=== PATIENT | female | born 1980 | race Caucasian/White ===

== ENCOUNTER → 2017-10-04 | Outpatient (CLI) | payer OTHER ==
[2017-10-04 15:35] VITALS: BP 118/78; PULSE 72; BMI 23.6
--- NOTE | 2017-10-05 08:20 | MM ---
Reason for exam: clinical finding. Baseline mammogram. History: Retro-pectoral saline implants in both breasts, 2006. Indicated problem(s): lump or thickening in the right breast. Physical Findings: Nurse Summary: tender nodule right axilla, questionable lymph node, 1cm adenopathy right axilla (nurse mj). MG 3D Diag Mammo Imp W/Cad PATRIA Bilateral CC, MLO, and ID view(s) were taken. The breast tissue is heterogeneously dense. This may lower the sensitivity of mammography. Punctate calcifications seen. There is chronic nodularity bilaterally. Bilateral implants are intact. These results were verbally communicated with the patient and result sheet given to the patient on 10/04/17. ASSESSMENT: Incomplete: need additional imaging evaluation, BI-RAD 0 RECOMMENDATION: Ultrasound of both breasts.
--- NOTE | 2017-10-05 08:25 | USB ---
Reason for exam: additional evaluation requested from abnormal screening. History: Retro-pectoral saline implants in both breasts, 2006. US Breast BILAT Right complete breast ultrasound includes all four quadrants, the retroareolar region and axilla. Finding demonstrates a 0.4 x 0.4 x 0.2cm oval, cystic lesion at 2 o'clock and a 0.9 x 1.0 x 0.5cm oval, mixed lesion at 9 o'clock for which a biopsy is recommended. Left complete breast ultrasound includes all four quadrants, the retroareolar region and axilla. Finding demonstrates a 0.5 x 0.6 x 0.2cm oval, cystic lesion at 12 o'clock and a 0.6 x 0.2 x 0.4cm oval, mixed lesion at 11 o'clock. These results were verbally communicated with the patient and result sheet given to the patient on 10/04/17. ASSESSMENT: Suspicious, BI-RAD 4 RECOMMENDATION: Ultrasound core biopsy of the right breast. Manage patient on a clinical basis. Called Dr. Perkins with mammographic findings and has scheduled an appointment for the patient for 10/04/[address] Kay. PRELIMINARY REPORT CALLED AND FAXED TO DR. KAY ON 10/04/17.
== END | disposition home or self-care (01) ==
LOC: RADMAMWWP 14:04
PROVIDERS: ATTEND Internal Medicine
DX: N63.10 Unspecified lump in the right breast, unspecified quadrant (principal); N63.20 Unspecified lump in the left breast, unspecified quadrant
CPT/HCPCS: 77066; 76641; G0279; 77062

== ENCOUNTER → 2017-10-04 | Outpatient (CLI) | payer OTHER | DX: Z53.9 Procedure and treatment not carried out, unspecified reason (principal) ==

== ENCOUNTER → 2018-02-14 | Outpatient (CLI) | payer OTHER ==
[2018-02-14 16:01] VITALS: BP 140/67; PULSE 70; RESP 18; TEMP 98.4; BMI 25.7
--- NOTE | 2018-02-14 16:15 | P.GSHP ---
History of Present Illness H&P Date: 02/14/18 Chief Complaint: Ultrasound abnormality of the right breast The patient is a 37-year-old white female who was initially seen on [id number]. At that time she had undergone bilateral mammogram and ultrasound. There was noted to be an area of some concern in the 9:00 area of the right breast which was reviewed directly with the radiologist and felt to have a low index of suspicion. Of concern was the fact that the patient had bilateral breast implants and after discussion with the patient she opted to have this followed radiographically with a repeat ultrasound performed at 3 months. It was noted than she would call us sooner if she noted anything of concern. The patient states that she does not note anything different in [place] [id number] revealed in the 2 o'clock position of the right breast circumscribed oval mass measuring 0.7 x 0.5 cm in size. At the 10 o'clock position there was a circumscribed oval mass measuring 0.2 x 1 cm. It presented with a border and hypoechoic pattern with no posterior acoustic features. At the 11 o'clock position there was a circumscribed oval mass measuring 0.4 cm x 0.2 cm . The lesion at 2:00 was felt to have increased in size and biopsy was recommended Additionally at this time there is a lesion at 10:00 which appears to be solid and biopsy is recommended. The bilateral implants replaced in 2006. She believes that they're subpectoral. Family History: 1. mother: kidney cancer 2. maternal aunt: kidney cancer 3. maternal grandmother: bone Hormonal history: menarche: 10 : 3, 3 children, breast fed: none first born at 12 periods regular BCP 2 years past surgical history: 1. Bilateral breast implants 2006 2. Tubal ligation 3. 2 surgeries on left knee Past medical history: Negative Review of systems: HEENT: Negative Lungs: Negative Heart: Negative GI: Negative Musculoskeletal: Arthritis in the Also history: Smoking: Negative Alcohol: Negative Drugs: Negative - Constitutional Constitutional: Reports sweats, Denies chills, Denies fever - EENT Eyes: denies blurred vision, denies pain Ears: deny: decreased hearing, tinnitus Ears, nose, mouth and throat: Denies headache, Denies sore throat - Breasts Breasts: bilateral: as per HPI - Cardiovascular Cardiovascular: Denies chest pain, Denies shortness of breath - Respiratory Respiratory: Denies cough, Denies 7 - Gastrointestinal Gastrointestinal: Denies abdominal pain, Denies diarrhea, Denies nausea, Denies vomiting - Genitourinary (Female) Genitourinary: Denies dysuria, Denies hematuria - Menstruation Menstruation: Reports period normal - Musculoskeletal Comment: arthritis left knee - Integumentary Integumentary: Denies pruritus, Denies rash - Neurological Neurological: Denies numbness, Denies weakness - Psychiatric Psychiatric: Denies anxiety, Denies depression - Endocrine Endocrine: Denies fatigue, Denies weight change - Hematologic/Lymphatic Comment: none - Allergic/Immunologic Allergic/Immunologic: Reports seasonal allergies Past Medical History Past Medical History: No Reported History History of Any Multi-Drug Resistant Organisms: None Reported Past Surgical History: Orthopedic Surgery Past Psychological History: No Psychological Hx Reported Smoking Status: Never smoker Past Alcohol Use History: None Reported Past Drug Use History: None Reported Medications and Allergies Home Medications Medication Instructions Recorded Confirmed Type No Known Home Medications 02/14/18 02/14/18 History Allergies Allergy/AdvReac Type Severity Reaction Status Date / Time No Known Allergies Allergy Verified 02/14/15 07:32 Surgical - Exam HR: 70 BP: 140/67 R:18 O2 :98% temp: 98.4 BMI: 25.7 - General well developed, well nourished, no distress - Eyes normal ocular movement - ENT no hearing loss, no congestion - Neck no masses, trachea midline - Respiratory normal respiratory effort, clear to auscultation - Cardiovascular Rhythm: regular Heart Sounds: normal: S1, S2 - Abdomen Abdomen: soft, non tender, no guarding, no rigid, no rebound - Integumentary normal turger Multiple tattoos - Musculoskeletal normal gait, normal posture - Psychiatric oriented to time, oriented to person, oriented to place, speech is normal, memory intact Breast examination: Right breast: Multi-positional exam no dominant masses or nodules of concern, particularly attention was paid to the 2 and 10 o'clock position with no dominant masses Right axilla: No adenopathy of concern Left breast: Multi-positional exam no dominant masses or nodules of concern Left axilla: No adenopathy of concern Note: Patient has bilateral breast implants which were placed from the infraumbilical region. Results Right breast ultrasound reviewed Assessment and Plan Assessment: Impression: 1. Ultrasound abnormality right breast 2. Bilateral breast implants 3. Arthritis in the knee Plan: 1. At this time secondary to the increase in size at the area 2:00 in the right breast is been recommended she undergo ultrasound core biopsy and additionally a core biopsy of 10:00 right breast mass which was has not changed in size CC: Dr. Harrison
== END ==
LOC: WWCWWP 15:24
PROVIDERS: ATTEND Surgery
DX: Z53.9 Procedure and treatment not carried out, unspecified reason (principal)

== ENCOUNTER → 2018-03-01 | Day surgery (SDC) | payer OTHER ==
[2018-03-01 11:00] VITALS: PULSE 80; RESP 16; TEMP 98.5; BMI 25.7
[2018-03-01 12:30] VITALS: BP 119/77
--- NOTE | 2018-03-01 15:11 | USB ---
EXAMINATION TYPE: US breast aspiration single RT DATE OF EXAM: 03/01/2018 CLINICAL HISTORY: R92.8 PREV ABN MAMMO.. TECHNIQUE: Ultrasound guided core biopsy of right breast. COMPARISON: NONE FINDINGS: The procedure of ultrasound guided core biopsy and cyst aspiration was explained to the patient. Benefits, alternatives, and risks were discussed. Specific discussion regarding implant rupture was discussed. An informed consent was then obtained. Timeout was performed. The patient was placed in lateral oblique positioning for imaging and for the procedure. The overlying skin was prepped and draped in usual sterile fashion. Lidocaine buffered with bicarbonate was used as anesthetic into the skin and subcutaneous tissue up to area of concern in the right breast. Under ultrasound guidance, an 18-gauge spinal needle was advanced into the lesion. Dark fluid was easily aspirated with complete collapse of the structure. Clip was placed at the site. The sample was transferred to pathology for additional evaluation. The biopsy was not performed. The patient tolerated the procedure well without any immediate complication. The patient was kept in the radiology department for short stay after the procedure and then discharged home in stable condition. Procedure mammogram was performed. A ribbon clip is identified within the breast upper outer quadrant. IMPRESSION: 1. Successful ultrasound-guided cyst aspiration 11:00 position right breast. 2. Successful clip placement. Recommendations: 1. Recommendations are pending pathology results. Pathology Results: Benign RIGHT BREAST, ASPIRATE: Degenerated cellular material consistent with cyst contents. Recommendation Follow up ultrasound of the right breast in 6 months. CARMELA
--- NOTE | 2018-03-01 15:56 | MM ---
EXAMINATION TYPE: MG diagnostic mammo RT wo CAD DATE OF EXAM: 03/01/2018 COMPARISON: NONE CLINICAL HISTORY: Ultrasound cyst aspiration TECHNIQUE: 2 views of the right breast post clip placement. FINDINGS: Ribbon Clip is within the expected region of the biopsy. IMPRESSION: 1. Successful ribbon clip placement postbiopsy. Recommendations: 1. Recommendations are pending pathology results.
== END | disposition home or self-care (01) ==
LOC: RADUSWWP 10:20
PROVIDERS: ATTEND Surgery
DX: N60.02 Solitary cyst of left breast (principal)
CPT/HCPCS: 88108; 77065; 76942; 19000; A4648; J2001

== ENCOUNTER → 2018-03-15 | Outpatient (CLI) | payer OTHER ==
[2018-03-15 16:06] VITALS: BP 122/59; PULSE 68; RESP 18; TEMP 98.3; BMI 24.9
--- NOTE | 2018-03-15 16:34 | P.PN ---
Subjective Progress Note Date: 03/15/18 Principal diagnosis: Abnormal ultrasound right breast Elise is a 37-year-old white female who on a ultrasound of the right breast was noted to have 2 areas of concern. One at the 2 o'clock position and one at the 10 o'clock position. It was recommended that she undergo ultrasound aspiration/ biopsy of these areas. The patient on 03-01-18 underwent aspiration of a lesion in the right breast and this was a cyst pathology revealed degenerating cellular material consistent with cyst contents. The second area was not sampled or aspirated. The lesion that was sampled was at the 11 o'clock position. The patient has no complaints related to the procedure. Objective - Vital Signs Vital signs: Vital Signs Temp 98.3 F 03/15/18 15:50 Pulse 68 03/15/18 15:50 Resp 18 03/15/18 15:50 BP 122/59 03/15/18 15:50 Pulse Ox 100 03/15/18 15:50 Intake & Output 03/14/18 03/15/18 03/15/18 18:59 06:59 18:59 Weight 65.771 kg - Constitutional General appearance: Present: average body habitus - EENT Eyes: Present: EOMI ENT: Present: hearing grossly normal - Neck Neck: Present: normal ROM - Respiratory Respiratory: bilateral: CTA - Cardiovascular Rhythm: regular Heart sounds: normal: S1, S2 - Gastrointestinal General gastrointestinal: Present: soft - Musculoskeletal Musculoskeletal: Present: gait normal - Psychiatric Psychiatric: Present: A&O x's 3, appropriate affect, intact judgment & insight - Additional findings Additional findings: Right breast area of ultrasound aspiration no evidence of hematoma or infection Assessment and Plan Assessment: Impression: 1. Right breast aspiration at 11:00 degenerative cellular material consistent with cyst contents 2. Secondary at 2:00 uncertain as to why it was not sampled will discuss with radiology Plan: 1. Discussed with radiology 2:00 area of the right breast if further intervention is necessary 2. Repeat right breast mammogram/ultrasound in 6 months with physician exam at that time Cc: Dr. Granados
== END ==
LOC: WWCWWP 15:44
PROVIDERS: ATTEND Surgery
DX: Z53.9 Procedure and treatment not carried out, unspecified reason (principal)

== ENCOUNTER → 2018-04-03 | Day surgery (SDC) | payer OTHER ==
[2018-04-03 12:09] VITALS: BMI 26.4
[2018-04-03 12:17] VITALS: RESP 16
--- NOTE | 2018-04-03 13:31 | USB ---
EXAMINATION TYPE: US biopsy breast VAD RT, MG diagnostic mammo RT wo CAD DATE OF EXAM: 04/03/2018 CLINICAL HISTORY: R92.8 Abnormal mammogram. Abnormal ultrasound. Ordering surgeon requests sampling of second identified lesion under ultrasound. TECHNIQUE: Ultrasound guided fine-needle aspiration and/or core biopsy of right breast with clip placement and follow-up two-view mammogram. COMPARISON: Prior ultrasound January 14, 2018 FINDINGS: The procedure of ultrasound guided fine-needle aspiration and/or core biopsy was explained to the patient. Benefits, alternatives, and risks were discussed including risks of possible implant rupture. An informed consent was then obtained. The patient was placed in supine positioning for imaging and for the procedure. Preprocedure ultrasound redemonstrates vague subcentimeter heterogeneous hypoechoic lesion 2:00 position in the right breast in the deep tissues near implant margin. The overlying skin was prepped and draped in usual sterile fashion. Lidocaine buffered with bicarbonate was used as anesthetic into the skin and subcutaneous tissue up to area of concern in the right breast. Aspiration was attempted utilizing 18-gauge spinal needle under ultrasound guidance. Attempts were unsuccessful. Under ultrasound guidance, a 12-gauge vacuum assisted biopsy gun device was used to obtain 2 core samples. Following this, a biopsy clip was left in lesion. The patient tolerated the procedure well without any immediate complication. The patient was kept in the radiology department for short stay after the procedure and then discharged home in stable condition. Postprocedure mammogram shows successful deployment of new second clip. IMPRESSION: Successful, uncomplicated ultrasound guided core biopsy of area of concern in the right breast, full pathology results to follow. Low index of suspicion noted at time of procedure. Procedure performed as per surgeon request. Pathology Results: Benign RIGHT BREAST, TWO O'CLOCK, ULTRASOUND GUIDED CORE BIOPSY: Fibrocystic changes including cysts and fibrosis. Recommendation Follow up ultrasound of the right breast in 6 months. CARMELA
[2018-04-03 13:33] VITALS: BP 114/77; PULSE 73; TEMP 98
--- NOTE | 2018-04-04 12:06 | USB ---
Reason for exam: additional evaluation requested from prior study. History: Benign US breast aspiration single RT of the right breast, March 01, 2018. Retro-pectoral saline implants in both breasts, 2006. Physical Findings: Nurse Summary: Patient complains of intermittent right breast soreness (nurse mj). US Breast Limited RT Right limited breast ultrasound including focal area of concern, retroareolar and axilla demonstrates a 8 x 4 x 8mm oval, hypoechoic lesion at 2 o'clock, a 5 x 3 x 4mm oval, cystic lesion at 3 o'clock and debris filled ducts at the posterior nipple. Probable debris filled cysts. These results were verbally communicated with the patient and result sheet given to the patient on 04/03/18. ASSESSMENT: Probably benign, BI-RAD 3 RECOMMENDATION: Ultrasound of the right breast in 6 months.
== END ==
LOC: RADUSWWP 11:29
PROVIDERS: ATTEND Surgery
DX: N60.31 Fibrosclerosis of right breast (principal); R92.8 Other abnormal and inconclusive findings on diagnostic imaging of breast
CPT/HCPCS: 88305; 77065; 19083; 76642; A4648; J2001

== ENCOUNTER → 2018-04-12 | Outpatient (CLI) | payer OTHER ==
[2018-04-12 16:13] VITALS: BP 141/75; PULSE 80; RESP 18; TEMP 98; BMI 26.4
--- NOTE | 2018-04-12 16:39 | P.PN ---
Subjective Progress Note Date: 04/12/18 Principal diagnosis: Status post ultrasound core biopsy of the right breast. The patient states approximately 2 days after the procedure of follicle Quan on the lateral aspect of the right breast although the core biopsy was taken from the medial aspect of the right breast. She then developed a blister which popped. The biopsy was done on [id number]. Pathology is fibrocystic changes including cyst and fibrosis. The patient developed erythema of the lateral aspect of the right breast which is approximately 5.5 cm x 4 cm in size. The breast is tender. The patient has not had any fever or chills or night sweats. Objective - Vital Signs Vital signs: Vital Signs Temp 98 F 04/12/18 16:03 Pulse 80 04/12/18 16:03 Resp 18 04/12/18 16:03 BP 141/75 04/12/18 16:03 Pulse Ox 99 04/12/18 16:03 Intake & Output 04/11/18 04/12/18 04/12/18 18:59 06:59 18:59 Weight 67.585 kg - Exam BMI 26.4 - Constitutional General appearance: Present: average body habitus, cooperative - EENT ENT: Present: hearing grossly normal - Neck Neck: Present: normal ROM - Respiratory Respiratory: bilateral: CTA - Cardiovascular Rhythm: regular Heart sounds: normal: S1, S2 - Gastrointestinal General gastrointestinal: Present: soft - Integumentary Integumentary Comment(s): Right breast ultrasound core biopsy puncture site in the medial aspect of the breast reveals some ecchymosis but otherwise no evidence of infection and lateral aspect of the breast there is an irregular area of erythema with a recently ruptured blister in the center of it the areas approximately 5.5 cm x 4 cm. Attempt to obtain cultures was unsuccessful as there is no fluid emanating from the area Assessment and Plan Assessment: Impression: 1. 37-year-old white female status post ultrasound biopsy of 2 areas of concern in the right breast both are benign 2. Post ultrasound core biopsy of the right breast from the medial aspect patient developed blistering and erythema of the lateral aspect of the right breast 3. Patient has bilateral breast implants 4. uncertain as to whether the area of erythema represents an infectious etiology versus avascular reaction 5. Patient with no tachycardia no fever no evidence of any infectious sepsis Plan: 1. Patient will be started on Keflex/unable to obtain cultures is nothing draining 2. Will obtain infectious disease consult 3. Patient to follow here next week 4. If the area of erythema increases in size patient instructed to be seen in the emergency room/the area has been circumscribed with a skin marking pen line 5. After consent a photograph of the area of concern has been obtained CC: Dr. Granados
== END ==
LOC: WWCWWP 15:42
PROVIDERS: ATTEND Surgery
DX: Z53.9 Procedure and treatment not carried out, unspecified reason (principal)

== ENCOUNTER → 2018-04-18 | Outpatient (CLI) | payer OTHER ==
[2018-04-18 16:57] VITALS: BP 121/80; PULSE 71; RESP 18; TEMP 98.3; BMI 26.4
--- NOTE | 2018-04-18 16:57 | P.PN ---
Progress Note - Text Progress Note Date: 04/18/18 The patient returns for repeat evaluation of the right breast. Post ultrasound core biopsy she had developed an area of marked erythema in the breast with some sloughing of the skin in the lateral aspect of the breast. She was started on a dose of antibiotics and comes for follow-up. At this time the area is less tender. She has decreased erythema. She appears to be doing very well. Examination: Decreased erythema at the area of the lateral aspect of the right breast Impression: 1. Decreased inflammatory/reaction near lateral aspect of the right breast Plan: 1. Patient has completed her course of antibiotics will continue to follow conservatively 2. Follow-up one week
== END | disposition home or self-care (01) ==
LOC: WWCWWP 15:53
PROVIDERS: ATTEND Surgery
DX: Z53.9 Procedure and treatment not carried out, unspecified reason (principal)

== ENCOUNTER → 2018-04-25 | Outpatient (CLI) | payer OTHER ==
[2018-04-25 16:26] VITALS: BP 130/62; PULSE 80; RESP 16; TEMP 97.5; BMI 26.4
--- NOTE | 2018-04-25 16:47 | P.PN ---
Progress Note - Text Progress Note Date: 04/25/18 The patient returns for repeat evaluation of the right breast. Post ultrasound core biopsy she had developed an area of marked erythema in the breast with some sloughing of the skin in the lateral aspect of the breast. She was started on a dose of antibiotics and comes for follow-up. At this time the area is less tender. She has decreased erythema. She appears to be doing very well. Examination: resolved erythema at the area of the lateral aspect of the right breast Impression: 1. resolved inflammatory/reaction in the lateral aspect of the right breast Plan: 1. Follow-up right breast mammogram in 6 months time with examination at that time CC: Hunter
== END | disposition home or self-care (01) ==
LOC: WWCWWP 16:05
PROVIDERS: ATTEND Surgery
DX: Z53.9 Procedure and treatment not carried out, unspecified reason (principal)

== ENCOUNTER → 2018-09-09 | Outpatient (CLI) | payer OTHER ==
--- NOTE | 2018-09-10 11:18 | USB ---
Reason for exam: clinical finding. History: Benign US biopsy breast VAD RT of the right breast, April 03, 2018. Benign US breast aspiration single RT of the right breast, March 01, 2018. Retro-pectoral saline implants in both breasts, 2006. Indicated problem(s): lump or thickening in the right breast. Physical Findings: Nurse did not find any significant physical abnormalities on exam. US Breast RT Right complete breast ultrasound includes all four quadrants, the retroareolar region and axilla. Finding demonstrates a 0.7 x 0.3 x 0.6cm oval, cystic lesion at 2 o'clock previously 0.8 x 0.4 x 0.8cm, a 0.7 x 0.3 x 0.5cm oval, solid lesion at 10 o'clock previously 0.7 x 0.5 x 0.3cm, a 0.5 x 0.5 x 0.4cm oval, cystic lesion at 11 o'clock and dilated duct with debris versus prominent breast lobe at 4 o'clock. These results were verbally communicated with the patient and result sheet given to the patient on 09/09/18. ASSESSMENT: Probably benign, BI-RAD 3 RECOMMENDATION: Follow-up diagnostic mammogram of both breasts in 1 month. (due after 10/04/18 for mammogram) Ultrasound of the right breast in 6 months.
== END | disposition home or self-care (01) ==
LOC: RADUSWWP 10:10
PROVIDERS: ATTEND Surgery
DX: N63.10 Unspecified lump in the right breast, unspecified quadrant (principal); R92.8 Other abnormal and inconclusive findings on diagnostic imaging of breast

== ENCOUNTER → 2018-09-12 | Outpatient (CLI) | payer OTHER ==
[2018-09-12 13:55] VITALS: BP 120/79; PULSE 79; RESP 16; TEMP 98.1; BMI 25.7
--- NOTE | 2018-09-12 14:22 | P.PN ---
Subjective Progress Note Date: 09/12/18 The patient is a 37-year-old white female who is status post ultrasound-guided core biopsy of the right breast on [id number]. Pathology revealed fibrocystic changes including cyst and fibrosis. She had a repeat ultrasound performed on 6318. The ultrasound revealed a 0.7 cm cystic lesion at 2:00, 0.8 cm solid lesion at 10:00, and a 0.5 cm cystic lesion at 11:00. These were felt to be probably benign and recommendation was for the patient to undergo bilateral diagnostic mammograms in 1 month. Additionally a repeat right breast ultrasound in 6 months was recommended. The patient does not feel anything that she is concerned about in her breast. It is important to note that she has bilateral subpectoral implants. Family history: 1. Mother: Kidney cancer 2. Maternal aunt: Kidney cancer 3. Maternal grandmother: Bone cancer Home medical history: Menarche: 10 Mrs.: 3, 3 children, breast fed: Negative First child was born 12 Periods: Regular control pills: 2 years Hormones: Negative Past surgical history 1. Bilateral breast implants 2. Tubal ligation 2. 2 surgeries on her left knee Past medical history: Negative Review of systems: HEENT: Negative Lungs: Negative Heart: Negative GI: Negative Musculoskeletal: Arthritis in the Social history: Smoking: Negative Alcohol: Negative Drugs: Negative Objective - Vital Signs Vital signs: Vital Signs Temp 98.1 F 09/12/18 13:52 Pulse 79 09/12/18 13:52 Resp 16 09/12/18 13:52 BP 120/79 09/12/18 13:52 Pulse Ox 100 09/12/18 13:52 Intake & Output 09/11/18 09/12/18 09/12/18 18:59 06:59 18:59 Weight 68.039 kg - Exam BMI 25.7 - Constitutional General appearance: Present: average body habitus - EENT Eyes: Present: EOMI ENT: Present: hearing grossly normal - Neck Neck: Present: normal ROM - Respiratory Respiratory: bilateral: CTA - Cardiovascular Rhythm: regular Heart sounds: normal: S1, S2 - Gastrointestinal General gastrointestinal: Present: soft - Integumentary Integumentary: Present: normal turgor - Musculoskeletal Musculoskeletal: Present: gait normal - Psychiatric Psychiatric: Present: A&O x's 3, appropriate affect, intact judgment & insight - Allied health notes Allied Health Notes Comment(s): Breast examination: Right breast: Multi-positional exam no dominant mass or nodule is of concern, implant in place Right axilla: No adenopathy of concern Left breast: Multiple positional exam no dominant masses or nodules of concern, implant in place, fibrocystic changes Left axilla: No adenopathy of concern Implants were placed via an infraumbilical incision Assessment and Plan Assessment: Impression: 1. Radiographic abnormality noted right breast 2. Fibrocystic breast changes 3. Bilateral breast implants 4. Family history of cancer Plan: 1. bilateral mammogram in one month, if this is benign then we'll see patient in 6 months with repeat right breast ultrasound 2. Medical management of medical conditions CC: Dr. Granados
== END ==
LOC: WWCWWP 13:27
PROVIDERS: ATTEND Surgery
DX: Z53.9 Procedure and treatment not carried out, unspecified reason (principal)

== ENCOUNTER → 2018-10-07 | Outpatient (CLI) | payer OTHER ==
--- NOTE | 2018-10-07 11:44 | MM ---
Reason for exam: additional evaluation requested from prior study. Last mammogram was performed 6 months ago. History: Benign US biopsy breast VAD RT of the right breast, April 03, 2018. Benign US breast aspiration single RT of the right breast, March 01, 2018. Retro-pectoral saline implants in both breasts, 2006. Physical Findings: Nurse did not find any significant physical abnormalities on exam. MG Diag Mamm Implants PATRIA w CAD Bilateral CC, MLO, and ID view(s) were taken. Prior study comparison: April 03, 2018, right breast MG diagnostic mammo RT wo CAD. March 01, 2018, right breast MG diagnostic mammo RT wo CAD. The breast tissue is heterogeneously dense. This may lower the sensitivity of mammography. Benign appearing bilateral calcifications. No suspicious abnormality. Bilateral retropectoral saline implants. These results were verbally communicated with the patient and result sheet given to the patient on 10/07/18. ASSESSMENT: Benign, BI-RAD 2 RECOMMENDATION: Routine screening mammogram of both breasts in 1 year.
== END | disposition home or self-care (01) ==
LOC: RADMAMWWP 10:48
PROVIDERS: ATTEND Surgery
DX: R92.8 Other abnormal and inconclusive findings on diagnostic imaging of breast (principal)
CPT/HCPCS: 77066

== ENCOUNTER → 2018-10-09 | Outpatient (CLI) | payer OTHER ==
[2018-10-09 14:50] VITALS: BP 135/82; PULSE 82; RESP 16; TEMP 98; BMI 26.5
--- NOTE | 2018-10-09 15:14 | P.PN ---
Progress Note - Text Progress Note Date: 10/09/18 Marisa is a 37-year-old white female who presents today for results of her mammogram report. A bilateral mammogram was performed on 71. This was felt to be benign BIRADS 2 and recommendation was for a repeat bilateral mammogram of both breast in 1 year. She had previously undergone a right breast ultrasound on 6319. This revealed multiple cystic lesions and repeat right breast ultrasound was recommended in 6 months time. The patient does not feel anything of concern in her breast. It was not concerned about her breast at this time. She does have bilateral subpectoral implants. Lungs: clear heart: S1S2 Impression: 1. Bilateral mammogram 71 benign 2. Fibrocystic breast changes 3. Bilateral breast implants 4. Family history of cancer Plan: 1. Right breast ultrasound in 6 months with physician exam 2. Medical management of medical conditions CC: Dr. Granados
== END ==
LOC: WWCWWP 14:32
PROVIDERS: ATTEND Surgery
DX: Z53.9 Procedure and treatment not carried out, unspecified reason (principal)

== ENCOUNTER → 2019-03-17 | Outpatient (CLI) | payer OTHER ==
--- NOTE | 2019-03-17 11:48 | USB ---
Reason for exam: follow-up at short interval from prior study. History: Benign US biopsy breast VAD RT of the right breast, April 03, 2018. Benign US breast aspiration single RT of the right breast, March 01, 2018. Retro-pectoral saline implants in both breasts, 2006. Physical Findings: Nurse did not find any significant physical abnormalities on exam. US Breast RT Right complete breast ultrasound includes all four quadrants, the retroareolar region and axilla. Finding demonstrates a 10 x 5 x 10mm lobular, cystic, new lesion at 1 o'clock, a 7 x 4 x 8mm oval hypoechoic lesion at 2 o'clock unchanged from previous 04/03/18, a 6 x 3 x 7mm oval, solid, isoechoic lesion, complicated cyst at 1 o'clock unchanged from previous, a 4 x 3 x 5mm oval, cystic lesion at 11 o'clock unchanged from previous and debris filled ducts at the posterior nipple seen on previous and unchanged (no nipple discharge). These results were verbally communicated with the patient and result sheet given to the patient on 03/17/19. ASSESSMENT: Benign, BI-RAD 2 RECOMMENDATION: Routine screening mammogram of both breasts in 7 months. Back on schedule for October 2019. Manage on a clinical basis. Clinical surveillance for nipple discharge.
== END | disposition home or self-care (01) ==
LOC: RADUSWWP 10:15
PROVIDERS: ATTEND Surgery
DX: R92.8 Other abnormal and inconclusive findings on diagnostic imaging of breast (principal)

== ENCOUNTER → 2019-03-20 | Outpatient (CLI) | payer OTHER ==
[2019-03-20 09:57] VITALS: BP 124/81; PULSE 83; RESP 18; TEMP 97.6
--- NOTE | 2019-03-20 17:51 | P.PN ---
Subjective Progress Note Date: 03/20/19 Principal diagnosis: Marisa is a 37-year-old white female who is status post ultrasound-guided core biopsy of the right breast on [id number]. Pathology at that time revealed fibrocystic changes including cystic fibrosis. She had a repeat ultrasound performed on . Ultrasound revealed cystic changes as well as unchanged solid lesion at 1:00. She also had debris-filled ducts at the posterior nipple seen on previous ultrasound and unchanged. Patient does not complain of nipple discharge. This was felt to be benign BIRADS 2 and routine screening mammogram of both breasts in 7 months was recommended. The patient herself does not complain of any changes in her breast. She does not complain of any nipple discharge and she has no breast pain. Family history: 1. Mother: Kidney cancer 2. Maternal aunt: Kidney cancer 3. Maternal grandmother: Bone cancer History: Menarche: 10 , press-fit: Negative First child was born at 12 Past surgical history: Bilateral breast implants Tubal ligation 2 surgeries on her left knee Past medical history negative Social history: Smoking: Negative Alcohol: Negative Drugs: Negative review of systems: Constitutional: Negative HEENT: Negative Lungs: Negative Heart: Negative GI: Negative : Negative Objective - Vital Signs Vital signs: Vital Signs Temp 97.6 F 03/20/19 09:48 Pulse 83 03/20/19 09:48 Resp 18 03/20/19 09:48 BP 124/81 03/20/19 09:48 Pulse Ox 100 03/20/19 09:48 Intake & Output 03/19/19 03/20/19 03/20/19 18:59 06:59 18:59 Weight 72.575 kg - Exam BMI 27.5 - Constitutional General appearance: Present: average body habitus - EENT Eyes: Present: EOMI ENT: Present: hearing grossly normal - Neck Neck: Present: normal ROM - Respiratory Respiratory: bilateral: CTA - Cardiovascular Rhythm: regular Heart sounds: normal: S1, S2 - Gastrointestinal General gastrointestinal: Present: normal bowel sounds, soft - Integumentary Integumentary Comment(s): well-healed scar at umbilicus - Musculoskeletal Musculoskeletal: Present: gait normal, strength equal bilaterally - Psychiatric Psychiatric: Present: A&O x's 3, appropriate affect, intact judgment & insight - Additional findings Additional findings: breast examination: Right breast: Multiple positional exam no dominant masses or nodules of concern, implant in place Right axilla: No adenopathy of concern Left breast: Positional exam no dominant masses or nodules of concern, implant in place Left axilla: No adenopathy of concern Assessment and Plan Assessment: patient's ultrasound was reviewed Impression: Fibrocystic breast changes Plan: 1. Repeat bilateral mammogram that this ultrasound an appointment in October 08. Follow-up after mammogram and ultrasound Cc: Dr. Granados Encounter approximately 20 minutes greater than 50% of the time spent in counseling and planning Time with Patient: Less than 30
== END | disposition home or self-care (01) ==
LOC: WWCWWP 09:40
PROVIDERS: ATTEND Surgery
DX: Z53.9 Procedure and treatment not carried out, unspecified reason (principal)

== ENCOUNTER → 2019-04-28 | Outpatient (CLI) | payer OTHER ==
--- NOTE | 2019-04-28 09:14 | CT ---
EXAMINATION TYPE: CT sinus wo con DATE OF EXAM: 04/28/2019 COMPARISON: None HISTORY: Sinusitis CT DLP: 583.[address] of the paranasal sinuses was performed in the axial and coronal planes. Bone and soft tissue settings are submitted. The paranasal sinuses demonstrate normal aeration and development. The paranasal sinuses are free of mucosal thickening or air fluid level. The osteal meatal units are patent bilaterally. The nasal septum is deviated from right to left. No bony destructive changes are seen within the field of view. IMPRESSION: Nasal septal deviation. Otherwise unremarkable study.
== END | disposition home or self-care (01) ==
LOC: RADCTMAIN 08:31
PROVIDERS: ATTEND Otolaryngology
DX: J34.2 Deviated nasal septum (principal)
CPT/HCPCS: 70486

== ENCOUNTER → 2019-11-07 | Outpatient (CLI) | payer OTHER ==
--- NOTE | 2019-11-07 15:25 | XR ---
EXAMINATION TYPE: XR cervical spine comp DATE OF EXAM: 11/07/2019 TECHNIQUE: Frontal, lateral, oblique, and open mouth view of the cervical spine are obtained. HISTORY: Bilateral upper extremity and lower extremity radiculopathy. Tingling of hands and feet. COMPARISON: None FINDINGS: The cervical spine is visualized in its entirety from C1 thru the top of T1 level. No scol iosis. There is mild reversal of the normal cervical lordosis. No evidence of anterolisthesis. Normal alignment without evidence of acute fracture or dislocation. There is mild disc space narrowing at C 6-C7 with mild osteophytosis and uncovertebral hypertrophy. Neural foramina demonstrate mild degenera tive changes at the C6-C7 level with no significant bony encroachment. The pre-vertebral soft tissue appears within normal limits. The atlantoaxial relationship is within normal limits on the open mouth view. IMPRESSION: 1. No acute fracture or dislocation is seen in the cervical spine. 2. Mild degenerative changes at C6-C7 as above.
--- NOTE | 2019-11-07 15:28 | XR ---
EXAMINATION TYPE: XR lumbosacral spine min 4V DATE OF EXAM: 11/07/2019 CLINICAL HISTORY: Bilateral upper extremity and lower extremity radiculopathy. Tingling of hands and feet. TECHNIQUE: Frontal, lateral, and oblique images of the lumbar spine are obtained. COMPARISON: None FINDINGS: There are 5 lumbar type vertebral bodies identified. The lumbar spine shows mild left-melany ed curvature of the lumbar spine. No evidence of acute fracture or dislocation. Vertebral body height s and disk space heights are within normal limits. There is facet arthropathy worst at L5-S1. The obl ique images demonstrate no evidence of spondylolysis. No spondylolisthesis. Normal osseous mineraliza tion. IMPRESSION: 1. No acute fracture or dislocation is seen in the lumbar spine. 2. Facet arthropathy worst at L5-S1.
== END | disposition home or self-care (01) ==
LOC: RADXRMAIN 07:59
PROVIDERS: ATTEND Family Medicine
DX: M47.22 Other spondylosis with radiculopathy, cervical region (principal); M47.27 Other spondylosis with radiculopathy, lumbosacral region
CPT/HCPCS: 72050; 72110

== ENCOUNTER → 2020-07-28 | Outpatient (CLI) | payer OTHER ==
--- NOTE | 2020-07-28 10:21 | XR ---
EXAMINATION TYPE: XR chest 2V DATE OF EXAM: 07/28/2020 COMPARISON: Chest x-ray 02/14/2015 HISTORY: Family history of lung disease, C 83.6, abnormal chest x-ray TECHNIQUE: Frontal and lateral views of the chest are obtained. FINDINGS: There is a pectus deformity and spinal curvature is present on prior exam. No evident airs pace disease, pneumothorax, or pleural effusion. There are prominent lung volumes. Cardiac mediastina l silhouette is within normal limits. IMPRESSION: No acute cardiopulmonary process. Stable findings.
== END | disposition home or self-care (01) ==
LOC: RADXRMAIN 08:25
PROVIDERS: ATTEND Family Medicine
DX: R09.89 Other specified symptoms and signs involving the circulatory and respiratory systems (principal); Z83.6 Family history of other diseases of the respiratory system
CPT/HCPCS: 71046

== ENCOUNTER → 2021-03-07 | Outpatient (CLI) | payer OTHER ==
--- NOTE | 2021-03-07 12:47 | MR ---
EXAMINATION TYPE: MR lumbar spine wo con DATE OF EXAM: 03/07/2021 COMPARISON: None HISTORY: Low back pain TECHNIQUE: Multiplanar, multisequence images of the lumbar spine were acquired without IV contrast. L1-L2: There is mild decreased signal and loss of height compatible degenerative disc disease. Mild p osterior disc bulge. No herniation or protrusion seen. No evidence for central stenosis or neural for aminal encroachment. L2-L3: There is mild decreased signal and loss of height compatible degenerative disc disease. Mild p osterior disc bulge. No herniation or protrusion seen. No evidence for central stenosis or neural for aminal encroachment. L3-L4: There is mild decreased signal and loss of height compatible degenerative disc disease. Mild p osterior disc bulge. No herniation or protrusion seen. No evidence for central stenosis or neural for aminal encroachment. L4-L5: There is mild decreased signal and loss of height compatible degenerative disc disease. Mild p osterior disc bulge. No herniation or protrusion seen. No evidence for central stenosis or neural for aminal encroachment. L5-S1: There is mild decreased signal and loss of height compatible degenerative disc disease. Mild p osterior disc bulge. No herniation or protrusion seen. No evidence for central stenosis or neural for aminal encroachment. Lumbar segments are intact. No paraspinal masses are identified. Conus medullaris has a normal appe arance. IMPRESSION: Multilevel mild degenerative disc disease and disc bulging.
== END | disposition home or self-care (01) ==
LOC: RADMRIMAIN 11:06
PROVIDERS: ATTEND Orthopaedic Surgery
DX: M51.26 Other intervertebral disc displacement, lumbar region (principal); M51.36 Other intervertebral disc degeneration, lumbar region
CPT/HCPCS: 72148

== ENCOUNTER 2021-05-03 07:48 | Day surgery (SDC) | payer OTHER ==
[2021-04-27 12:08] VITALS: BMI 27.1
[~2021-05-03 07:48] MED LIST: LACTATED RINGERS 1,000 ML IV SCH
[2021-05-03 08:04] VITALS: RESP 18; TEMP 97.9
[2021-05-03] MEDS ORDERED: LACTATED RINGERS 1,000 ML IV ONE (08:06)
[2021-05-03] MEDS ORDERED: methylPREDNISolone ACETATE 40 MG/ML 1 ML VIAL ONE (08:10)
[2021-05-03] MEDS ORDERED: IOPAMIDOL M200 10 ML VIAL ONE (08:10)
[2021-05-03] MEDS ORDERED: fentaNYL (PF) 50 MCG/ML 2 ML AMP ONE (08:10)
[2021-05-03] MEDS ORDERED: MIDAZOLAM 2 MG/2 ML VIAL ONE (08:10)
--- NOTE | 2021-05-03 08:31 | P.PCN ---
Date of Procedure: 05/03/21 Procedure(s) Performed: PREOPERATIVE DIAGNOSIS: 1-Lumbar radiculopathy . 2-lumbar degenerative disc disease POSTOPERATIVE DIAGNOSIS: Same as preoperative diagnoses. PROCEDURE 1. Transforaminal epidural steroid injection under fluoroscopic guidance at left L5-S1 level. (Fluoroscopy images stored on file in the radiology Department ) 2. Lumbar epidurogram . ANESTHESIA: Local with 1% lidocaine 3 ml , moderate sedation with intravenous Versed 2 mg and fentanyle 100 micrograms. EBL: Minimal PROCEDURE INDICATION: The patient with low back pain and radiculopathy symptoms unresponsive to conservative treatment. PROCEDURE DESCRIPTION / TECHNIQUE: The patient was seen and identified in the preoperative area. Risks, benefits, complications, and alternatives were discussed with the patient. The patient agreed to proceed with the procedure and signed the consent. IV was started, and vital signs were stable. Patient was taken to the OR and time out was completed. The patient was placed in the prone position on procedure table and a pillow was placed under the abdomen to reduce lumbar lordosis. The lumbosacral area was prepped and draped in the usual sterile fashion. Critical pause was taken. Vital signs were closely monitored during the procedure. Conscious sedation was used during the procedure to decrease patient s anxiety. Using oblique fluoroscopy, the chin of the ``Gavino dog at Left L5-S1 level was identified, and the skin and deeper tissues just below was localized with 1% lidocaine. Subsequently, a 22-gauge 3.5-inch spinal needle was advanced under a tunneled view fluoroscopic guidance just underneath the chin of the ``Gavino dog at the left L5-S1 Under lateral fluoroscopy, the needle was then advanced to the posterior border of the interforaminal space. After negative aspiration of CSF and blood and with no paresthesias, 1 mL Isovue 200 contrast dye was injected excellent epidurogram and outlining of the nerve root Subsequently, 3 mL of block solution containing 80 mg Depo-Medrol and 2 mL of 0.9% normal saline PF was injected. Needle was removed. At the end of the procedure, skin was cleansed, and bandages were applied. COMPLICATIONS:none DISPOSITION / PLANS: The patient was placed in a supine position and transferred to the recovery area in a stable condition for observation. There was no evidence of lower extremity motor or sensory deficit after the procedure. Patient was discharged from the recovery room after meeting discharge criteria. Home discharge instructions were given to the patient by the staff. The patient was reexamined prior to discharge.
[2021-05-03] MEDS ORDERED: IV FLUID CONTINUATION 1,000 ML IV ONE (08:34)
[2021-05-03 08:58] VITALS: BP 117/71; PULSE 76
--- NOTE | 2021-05-03 09:05 | FL ---
EXAMINATION TYPE: FL guided pain mgmt statistic DATE OF EXAM: 05/03/2021 HISTORY: Fluoroscopy time 11 seconds of fluoroscopy provided. IMPRESSION: 1. Fluoroscopy time.
== END 2021-05-03 09:07 | disposition home or self-care (01) ==
LOC: ORPAIN 07:48
PROVIDERS: ATTEND Specialist
DX: M54.50 Low back pain, unspecified (principal); M54.16 Radiculopathy, lumbar region
CPT/HCPCS: 64483; 81025; J2250; J1030; J3010; Q9966; 99152

== ENCOUNTER → 2021-05-23 | Outpatient (CLI) | payer OTHER ==
[2021-05-23 09:54] VITALS: BP 116/81; PULSE 94; RESP 16; TEMP 97.9
--- NOTE | 2021-05-23 10:06 | P.PN ---
Subjective Progress Note Date: 05/23/21 Principal diagnosis: A 40 yr old female with a history of severe and chronic low back pain secondary to lumbar degenerative disc diseases and lumbar spondylosis with facet arthropathy presents today for evaluation status post left transforaminal epidural steroid injection of the L5-S1. Patient states she spent 60% pain relief with the procedure for 5 days then pain progressively started to worsen at the current level of 7 out of 10 in intensity. Pain is dull/ achy in the l ower lumbar spine with shooting pain towards the buttocks. Pain is provoked by sitting for periods of 30 minutes or more. It is also provoked with certain physical therapy maneuvers. Pain is alleviated with medications, injections, massage, repositioning and rest. Interventional pain procedures completed include Mobic Patient is currently on left TFESI of the L5-S1 #1 Patient denies any side effects of the medication(s), denies excessive drowsiness or sleepiness, denies suicidal ideation and reports that the current pain medication is helping to control the pain and improve activities of daily living. Patient denies any motor or sensory deficits. Patient denies any fever or night sweats, denies any change in the bowel movements or urination. Physical Examination: -Constitutional: Cooperative. Not in acute distress . -HEENT: Neck is supple. No lymphadenopathy. No thyromegaly. Normal thyroid size. Eyes: No ptosis , no icterus, no photophobia. ENT: No auditory deficits. Normal oropharynx. No Thrush. - Respiratory: Chest clear to auscultations bilaterally. No wheezing. No rhonchi. - Cardiovascular: Regular rate and rhythm. S1 / S2 , no S3 , no S4. - Gastrointestinal: Abdomen soft no tenderness. Bowel sounds positive in all four quadrants. No organomegaly. - Genitourinary: Deferred. - Neurologic: Cranial nerve II to XII intact. No focal neurological deficits. - Psychatric: Alert & oriented x 3. Matching mood & appropriate affect. Judgment and insight intact. - Lymphatic: No Lymphadenopathy. - Musculoskeletal: Cervical spine: Muscle bulk/ tone/ strength in the bilateral upper extremities normal. Facet loading test cervical area positive. Lumbar spine: Motor bulk/ tone/ strength lower extremities , thigh and legs : 5/5 Deep tendon reflexes : Normal Knee Jerk. Normal Ankle Jerk . Vertebral body tenderness to palpation over L5 Lumbar Facet Loading Test positive over the L5-S1 without muscle spasms Straight Leg Raise: positive at 30 degrees right side/ left side negative Gaenslen's Test positive Sacral spine : Severe tenderness over the Sacroiliac joint: right side / left side Range of motion: Flexion of the lumbar spine <60 degrees Range of motion: Extension of the lumbar spine <20 degrees Gaenslen's Test positive Ailyn test: positive right side / left side Assessment and plan: Chronic low back pain secondary to lumbar degenerative disc disease , lumbar spondylosis with facet arthropathy without myelopathy Recommendation of left TFESI L5-S1 #2 Risks, benefits of procedure discussed and patient verbalized understanding Denies aspirin or anticoagulant use All patient questions answered MAPS reviewed and it was appropriate. I have spent 31 minutes on patient care today. Dr Huntley was available by phone for the evaluation of this patient. The time was used to review the medical records including relevant urine studies and Prescription history (MAPs), review of the available imaging, evaluation and examination of the patient, coordination of care with the medical staff and if applicable referring physicians, as well as creation of the medical record Objective - Vital Signs Vital signs: Vital Signs Temp 97.9 F 05/23/21 09:46 Pulse 94 05/23/21 09:46 Resp 16 05/23/21 09:46 BP 116/81 05/23/21 09:46 Pulse Ox PQRS Measure Charge Sheet Mode of Arrival: Ambulatory - Pain Location Lower Back Non-Pharmacological Interventions: Inactivity, Relaxation Technique Pharmacological Interventions: Epidural, Medication PQRS Narrative: Smoking Status Never smoker Blood Pressure 116/81 Pain Intensity [Lower Back] 6 Scale Used Numeric (1 - 10) Hx Alcohol Use (MH) No Home Medications: Ambulatory Orders Furosemide [Lasix] 40 mg PO DAILY 04/27/21 Meloxicam 15 mg PO DAILY 04/27/21 Phentermine HCl [Adipex-P] 37.5 mg PO DAILY 04/27/21 Potassium Chloride [K-Tab ER] 20 meq PO DAILY 04/27/21
== END ==
LOC: PNWHC3 09:33
PROVIDERS: ATTEND Physician Assistant Medical
DX: M51.36 Other intervertebral disc degeneration, lumbar region (principal); M47.816 Spondylosis without myelopathy or radiculopathy, lumbar region; G89.29 Other chronic pain
CPT/HCPCS: 99211

== ENCOUNTER → 2021-07-20 | Outpatient (CLI) | payer OTHER ==
--- NOTE | 2021-07-21 04:20 | MR ---
EXAMINATION TYPE: MR knee LT wo con DATE OF EXAM: 07/20/2021 COMPARISON: 03/09/2014 HISTORY: L knee pain Multiplanar multi echo imaging of the left knee without contrast. There is previous reconstructive surgery of the anterior cruciate ligament which appears intact. The posterior cruciate ligament is intact. There is narrowing of the medial joint space. There is signifi cant thinning of the posterior horn medial meniscus. The lateral meniscus appears intact. The collate ral ligaments are intact. No fracture seen. No evidence of any significant joint effusion. There is m inor spurring of the medial femoral and tibial condyles. There is no evidence of a soft tissue mass. The patella is intact. IMPRESSION: Reconstructive surgery. Mild osteoarthritis in the medial joint space. Mild narrowing medial joint sp pedro. Complex tear and probably postsurgical changes of the posterior horn medial meniscus. There is a lso some degenerative thinning of the anterior horn of the medial meniscus.
== END | disposition home or self-care (01) ==
LOC: RADMRIMAIN 10:57
PROVIDERS: ATTEND Orthopaedic Surgery
DX: M17.12 Unilateral primary osteoarthritis, left knee (principal); M23.8X2 Other internal derangements of left knee

== ENCOUNTER → 2021-08-15 | Outpatient (CLI) | payer OTHER ==
[2021-08-15 22:38] LABS: Basophils # (A) 0.06 X 10*3/uL (0.00-0.10); Basophils % (A) 0.7 %; Eosinophils # (A) 0.18 X 10*3/uL (0.04-0.35); HGB 12.2 g/dL (12.0-15.0); Immature Grans, Automated 0.3 %; Lymphocytes # (A) 2.59 X 10*3/uL (0.90-5.00); Lymphocytes % (A) 29.4 %; MCH 31.1 pg (27.0-32.0); MCHC 32.1 g/dL (32.0-37.0); MCV 96.9 fL (80.0-97.0); Monocytes # (A) 0.59 X 10*3/uL (0.20-1.00); Monocytes % (A) 6.7 %; NRBC Per 100 WBC 0 /100 WBCS (0.0-0.0); Neutrophils # (A) 5.37 X 10*3/uL (1.80-7.70); Neutrophils % (A) 60.9 %; Platelet Count 386 X 10*3/uL (140-440); RBC 3.92 X 10*6/uL (4.10-5.20); RDW 11.9 % (11.5-14.5); WBC 8.82 X 10*3/uL (4.50-10.00)
[2021-08-15 23:25] LABS: Anion Gap 11.5 mmol/L (10.00-18.00); Carbon Dioxide 22.4 mmol/L (20.0-27.5); Potassium 3.7 mmol/L (3.5-5.5)
== END | disposition home or self-care (01) ==
LOC: LABPAT 14:19
PROVIDERS: ATTEND Orthopaedic Surgery
DX: Z01.812 Encounter for preprocedural laboratory examination (principal); M23.92 Unspecified internal derangement of left knee
CPT/HCPCS: 80051; 85025

== ENCOUNTER 2021-08-31 07:13 | Day surgery (SDC) | payer OTHER ==
--- NOTE | 2021-08-30 15:51 | HP ---
HISTORY AND PHYSICAL DATE OF SURGERY: 08/31/2021 Marisa Matson is a 40-year-old patient seen with progressive left knee pain. We discussed options for treatment. She elected to proceed with left knee arthroscopy. Consent was obtained. PAST MEDICAL HISTORY: Hypertension. PAST SURGICAL HISTORY: Knee arthroscopy, tubal ligation. DAILY MEDICATIONS: Furosemide, meloxicam, potassium. ALLERGIES: NONE. SOCIAL HISTORY: She denies tobacco use. PHYSICAL EVALUATION OF THE LEFT KNEE: Her range of motion is negative 2/3 to 95. Tenderness, medial and lateral joint lines. Positive medial Tony's. Positive lateral Tony's. Mild effusion. Ligaments stable. Distal neurovascular exam is intact. Radiographs of the left knee revealed osteoarthritic changes. MRI left knee revealed medial meniscal tear. IMPRESSION: Internal derangement of left knee with medial meniscal tear. PLAN: Left knee arthroscopy with partial medial meniscectomy and debridement. MMODL / IJN: [id number] /
[~2021-08-31 07:13] MED LIST changes: +DEXAMETHASONE SOD PHOSPHATE 4 MG/ML 1 ML VIAL IV ONE; +HYDROmorphone 0.5 MG/0.5 ML SYRINGE IVP PRN; +LIDOCAINE 1% (10MG/ML) FOR IV START INTRADERMA PRN; +ONDANSETRON 4 MG/2 ML VIAL IVP ONE
[2021-08-31] MEDS ORDERED: LIDOCAINE 2% INJ 20 MG/ML (2 ML VIAL) ONE (09:27)
[2021-08-31] MEDS ORDERED: PROPOFOL 10 MG/ML 20 ML VIAL IV ONE (09:27)
[2021-08-31] MEDS ORDERED: fentaNYL (PF) 50 MCG/ML 2 ML AMP ONE (09:27)
[2021-08-31] MEDS ORDERED: MIDAZOLAM 2 MG/2 ML VIAL ONE (09:27)
[2021-08-31] MEDS ORDERED: BUPIVACAINE (PF) 0.25% 30 ML VIAL SQ ONE ×2 (09:36→10:00)
--- NOTE | 2021-08-31 10:18 | P.OP ---
Date of Procedure: 08/31/21 Preoperative Diagnosis: Internal derangement left knee Postoperative Diagnosis: 1. Tear medial and lateral meniscus left knee 2. ACL graft tear left knee 3. Reactive synovitis medial, lateral and suprapatellar compartments left knee Procedure(s) Performed: 1. Arthroscopic partial medial and lateral meniscectomy left knee 2. Arthroscopic partial synovectomy medial, lateral and suprapatellar compartments left knee 3. Arthroscopic debridement complete ACL graft tear left knee Anesthesia: ISAELA, local Surgeon: Kemal Doe Estimated Blood Loss (ml): 7 Pathology: none sent Condition: stable Disposition: PACU Indications for Procedure: 40-year-old patient seen with progressive left knee pain. After treatment options were discussed, she elected to proceed with arthroscopy. Operative Findings: See description of procedure Description of Procedure: Patient was taken to the operative suite. Patient underwent a general anesthetic by the department of anesthesia. Patient was given preoperative antibiotics. The left lower extremity was placed in a well-padded arthroscopic leg cooney. The left leg was prepped and draped in the normal sterile orthopedic fashion. A lateral parapatellar and suprapatellar incision was made. Trochars were inserted. Arthroscopy was initiated. Suprapatellar pouch revealed diffuse thick reactive synovitis. The patellofemoral joint appeared to articulate congruently. There was grade 1/2 chondromalacia of the patella with osteochondraltearspresent. The scope was guided into the medial gutter. No loose bodies or plica were identified. The scope was then guided into the medial compartment. A medial parapatellar incision was made. Trocar inserted followed by probe. There was a complex tear involving the mid body and posterior horn of the medial meniscus. There were grade 1/2 chondromalacia changes of the medial femoral condyle with no significant osteochondral tears present. There was some thick reactive synovitis anteriorly. I performed a partial medial meniscectomy getting down to stable meniscal tissue. I performed a partial synovectomy decompressing the reactive synovitis. The residual meniscus was stable. There was good decompression of synovitis. I did note an area of grade 3 chondromalacia along the posterior tibial plateau area. Scope and probe were then guided into the intercondylar notch. There was obvious tearing of the ACL graft. I introduced a motorized shaver and debrided out the tear. Once I completed that I noted essentially complete tear of the ACL graft. This was completely debrided out. The PCL was probed and found to be stable.. The scope and probe were then guided into lateral compartment. There was a radial tear in the anterior horn lateral meniscus. There were grade 1 chondromalacia changes along the lateral compartment. There was thick reactive synovitis anteriorly. I performed a partial lateral meniscectomy getting down to stable meniscal tissue. I performed a partial synovectomy decompressing reactive synovitis. The residual meniscus was stable. There was good decompression of synovitis. The scope was in guided back into the suprapatellar compartment. I introduced a motorized shaver into the super patellar compartment. I performed a partial synovectomy. The shaver was now removed. There was good decompression of synovitis. I took one more look around the entire knee, no residual debris. Instruments were now removed from the joint. The joint was infiltrated with .25% Marcaine. Steri-Strips were applied to the portal sites. Sterile dressings were applied. The patient was placed into a PRISCILA hose. No tourniquet was utilized. The patient was awakened, transferred to a bed and taken to recovery stable satisfactory condition.
[2021-08-31 10:22] VITALS: TEMP 97
[2021-08-31 11:04] VITALS: RESP 16
[2021-08-31 11:49] VITALS: BP 127/69; PULSE 81
== END 2021-08-31 12:18 | disposition home or self-care (01) ==
LOC: OR 07:13
PROVIDERS: ATTEND Orthopaedic Surgery
DX: M23.204 Derangement of unspecified medial meniscus due to old tear or injury, left knee (principal); M23.201 Derangement of unspecified lateral meniscus due to old tear or injury, left knee; T85.698A Other mechanical complication of other specified internal prosthetic devices, implants and grafts, initial encounter; R60.0 Localized edema; I10 Essential (primary) hypertension; K21.9 Gastro-esophageal reflux disease without esophagitis; Z97.2 Presence of dental prosthetic device (complete) (partial); Z79.1 Long term (current) use of non-steroidal anti-inflammatories (NSAID); Z79.899 Other long term (current) drug therapy; Z98.51 Tubal ligation status; Z98.890 Other specified postprocedural states
CPT/HCPCS: 81025; 29880; J2250; J1100; J0690; J2405; J3010; J2704; J1170; J2001

== ENCOUNTER 2021-09-20 07:10 | Day surgery (SDC) | payer OTHER ==
[2021-09-19 12:11] VITALS: BMI 24.1
[2021-09-20 07:45] VITALS: TEMP 98.6
[2021-09-20] MEDS ORDERED: LACTATED RINGERS 1,000 ML IV ONE (07:57)
[2021-09-20] MEDS ORDERED: IOPAMIDOL M200 10 ML VIAL ONE (08:30)
[2021-09-20] MEDS ORDERED: methylPREDNISolone ACETATE 80 MG/ML 1 ML VIAL ONE (08:30)
[2021-09-20] MEDS ORDERED: fentaNYL (PF) 50 MCG/ML 2 ML AMP ONE (08:30)
[2021-09-20] MEDS ORDERED: MIDAZOLAM 2 MG/2 ML VIAL ONE (08:30)
--- NOTE | 2021-09-20 08:43 | P.PCN ---
Date of Procedure: 09/20/21 Procedure(s) Performed: PREOPERATIVE DIAGNOSIS: 1- Lumbar Degenerative Disc Diseases 2-Lumbar Radiculopathy POSTOPERATIVE DIAGNOSIS: Same as preop diagnosis. PROCEDURE 1. Lumbar epidural steroid injection under fluoroscopic guidance at the L5-S1 level. (Fluoroscopy imaging was available in radiology department) 2. Lumbar epidurogram. ANESTHESIA: Local with 1% lidocaine 3 ml and , moderate sedation with intravenous Versed 2 mg ,and fentanyle 100 Mcg EBL: Minimal PROCEDURE INDICATION: The patient with low back pain and radiculitis symptoms unresponsive to conservative treatment. Fluoroscopy was used to optimize visualization of the needle placement and to maximize safety. PROCEDURE DESCRIPTION / TECHNIQUE: The patient was seen and identified in the preoperative area. Risks, benefits, complications including but not limited to infections ,bleeding ,allergic reaction to the medications ,nerve damage and not complete pain releife , and alternatives were discussed with the patient. The patient agreed to proceed with the procedure and signed the consent. IV was started, and vital signs were stable. Patient was taken to the OR and time out was completed. The patient was placed in the prone position on procedure table and a pillow was placed under the abdomen to reduce lumbar lordosis. The lumbosacral area was prepped and draped in the usual sterile fashion.ere closely monitored during the procedure. Conscious sedation was used during the procedure to decrease patients anxiety. Vital signs was monitered during the entire procedure. Using anterior-posterior fluoroscopy, the L5-S1 interlaminar space was identified and the skin over this site was marked and then infiltrated with 1% lidocaine subcutaneously. Subsequently, a 20-gauge Tuohy epidural needle was inserted and advanced toward the epidural space using the ``Loss of resistance technique and guided by AP and lateral fluoroscopy. The correct needle position in the epidural space was verified with the injection of 2 mL of the water soluble contrast dye Isovue 200 contrast and observing an excellent epidurogram with the epidural spread of the dye, after negative aspiration for blood and CSF and in the absence of paresthesias. Again after negative aspiration, a 6 ml mixture containing 80 mg of Depo-medrol , and 2 ml of preservative free Normal Saline, and 2 ml of preservative free lidocaine 1% solution was injected and a washout of epidurogram was seen. Needle was withdrawn intact, skin was cleansed, and bandages were applied. COMPLICATIONS: None DISPOSITION / PLANS: The patient was placed in a supine position and transferred to the recovery area in a stable condition for observation. There was no evidence of lower extremity motor or sensory deficit after the procedure. Patient was discharged from the recovery room after meeting discharge criteria. Home discharge instructions were given to the patient by the staff. The patient was reexamined prior to discharge. The patient will schedule a follow up in the clinic in 2-4 weeks.
[2021-09-20] MEDS ORDERED: IV FLUID CONTINUATION 800 ML IV ONE (08:45)
[2021-09-20 08:48] VITALS: PULSE 88; RESP 16
[2021-09-20 09:17] VITALS: BP 127/72
--- NOTE | 2021-09-20 11:44 | FL ---
Fluoroscopy HISTORY: Pain 2 seconds fluoroscopy time supplied to the referring clinician. 1 intraoperative C-arm images docume nt the procedure. See dictated report from anesthesia.
== END 2021-09-20 09:15 | disposition home or self-care (01) ==
LOC: ORPAIN 07:10
PROVIDERS: ATTEND Specialist
DX: M51.16 Intervertebral disc disorders with radiculopathy, lumbar region (principal)
CPT/HCPCS: 81025; 62323; J2250; J1040; J3010; Q9966

== ENCOUNTER → 2021-10-06 | Outpatient (CLI) | payer OTHER ==
[2021-10-06 09:40] VITALS: BP 113/73; PULSE 94; RESP 18; TEMP 97.9
--- NOTE | 2021-10-06 14:55 | P.PAINPG ---
PQRS Measure Charge Sheet Comment: A 40 yr old female with a history of severe and chronic low back pain secondary to lumbar degenerative disc diseases and lumbar spondylosis with facet arthropathy presents today for evaluation s/p LESI L5-S1. Pt states she experirenced 85% relief s/p procedure. Pain level is currently at 1/10 in intensity, localized to the lower asepct of her lumbar spine/tailbone, intermittent, pressure sensation in character without radiation of pain. Pain is provoked by bending/ lifting and sitting for periods of 30 min or more. Pain is alleviated with PT Apr 2021 x 4 weeks, heat, topicals, repositioning and rest. Interventional pain procedures completed include LESI L5-S1 Patient is currently on DENIES Patient denies any side effects of the medication(s), denies excessive drowsiness or sleepiness, denies suicidal ideation and reports that the current pain medication is helping to control the pain and improve activities of daily living. Patient denies any motor or sensory deficits. Patient denies any fever or night sweats, denies any change in the bowel movements or urination. Physical Examination: -Constitutional: Cooperative. Not in acute distress . - Neurologic: Cranial nerve II to XII intact. No focal neurological deficits. - Psychatric: Alert & oriented x 3. Matching mood & appropriate affect. Judgment and insight intact. - Musculoskeletal: Cervical spine: Muscle bulk/ tone/ strength in the bilateral upper extremities normal Vertebral body tenderness to palpation over Spurling test positive Distraction test positive Facet loading test positive Thoracic spine Muscle bulk / tone/ strength in the bilateral paraspinal muscles normal Vertebral body tender to palpation over Facet loading test positive Lumbar spine: Motor bulk/ tone/ strength lower extremities , thigh and legs : 5/5 Deep tendon reflexes : Normal Knee Jerk. Normal Ankle Jerk . Vertebral body tenderness over L5 with deep palpation Lumbar Facet Loading Test positive Straight Leg Raise: positive at 30 degrees right side/ left side Gaenslen's Test positive Sacral spine : Severe tenderness over the Sacroiliac joint: right side / left side Range of motion: Flexion of the lumbar spine <60 degrees Range of motion: Extension of the lumbar spine <20 degrees Gaenslen's Test positive Aryan's Test positive Ailyn test: positive right side / left side Thigh Thrust Test Sacral Thrust Test Assessment and plan: Chronic low back pain secondary to lumbar degenerative disc disease , lumbar spondylosis with facet arthropathy without myelopathy Pt found sufficient and substantial pain relief s/p procedure. She will use home pain management remedying protocols from this point on murillo and will schedule visits with this clinic on an as needed basis. All patient questions answered MAPS reviewed and it was appropriate. I have spent less than 30 minutes on patient care today. Dr Huntley was available by phone for the evaluation of this patient. The time was used to review the medical records including relevant urine studies and Prescription history (MAPs), review of the available imaging, evaluation and examination of the patient, coordination of care with the medical staff and if applicable referring physicians, as well as creation of the medical record - Pain Location Bilateral Lower Back Non-Pharmacological Interventions: Heat, Inactivity, Physical Therapy Pharmacological Interventions: Epidural, Topical Medication PQRS Narrative: Smoking Status Never smoker Hx Alcohol Use (MH) No Home Medications: Ambulatory Orders Furosemide [Lasix] 40 mg PO DAILY 04/27/21 Meloxicam 15 mg PO DAILY 04/27/21 Phentermine HCl [Adipex-P] 37.5 mg PO DAILY 04/27/21 Potassium Chloride [K-Tab ER] 20 meq PO DAILY 04/27/21 Controlled Substance Measures - Controlled Substance Measures Is patient prescribed a controlled substance at discharge?: No
== END ==
LOC: PNWHC3 09:00
PROVIDERS: ATTEND Specialist
DX: M47.816 Spondylosis without myelopathy or radiculopathy, lumbar region (principal); M51.36 Other intervertebral disc degeneration, lumbar region; G89.29 Other chronic pain
CPT/HCPCS: 99211